=== PATIENT | female | born 1975 | race Caucasian/White ===

== ENCOUNTER 2018-07-04 21:04 | Emergency (ER) | payer BC ==
[~2018-07-04] VITALS: Ht 160 cm; Wt 86.2 kg
[2018-07-04 21:10] VITALS: BP 154/93
[2018-07-04] MEDS ORDERED: CIPRODEX OTIC7.5 M1 LEFT EAR (21:28)
[2018-07-04] MEDS ORDERED: HYDROCODON-ACE1 EA15 ORAL (21:28)
[2018-07-04] MEDS ORDERED: BACTRIM DS TAB1 EAC1 ORAL (21:28)
--- NOTE | 2018-07-04 21:29 | Emergency Room Report ---
History of Present Illness General Chief Complaint: Earache Source: Patient Present Illness HPI This 43-year-old female with no significant past medical history. She presents with chief complaint of left ear pain. Onset for last few days. There is some drainage. No fever chills but no nausea no vomiting. Pain is 9 out of 10. Worse with movement of the ear. No trauma. No other complaint. Allergies: Coded Allergies: No Known Allergies (Unverified , 07/04/18) Patient History Past Medical History: see triage record, old chart reviewed Past Surgical History: none Pertinent Family History: none Social History: Denies: smoking Last Menstrual Period: Jun, 2018 Now: No Immunizations: other Reviewed Nursing Documentation: PMH: Agreed; PSxH: Agreed Nursing Documentation-PMH Past Medical History: No Stated History Review of Systems Eye: Denies: eye pain, blurred vision ENT: Reports: ear pain, ear discharge; Denies: nose congestion, throat swelling Respiratory: Denies: cough, shortness of breath Cardiovascular: Denies: chest pain, palpitations Gastrointestinal: Denies: abdominal pain, diarrhea, nausea, vomiting Musculoskeletal: Denies: back pain, joint pain Skin: Denies: rash Neurological: Denies: headache, numbness Endocrine: Denies: increased thirst, increased urine Hematologic/Lymphatic: Denies: easy bruising All Other Systems: negative except mentioned in HPI Physical Exam Vital Signs Date Time Temp Pulse Resp B/P (MAP) Pulse Ox O2 Delivery O2 Flow Rate FiO2 07/04/18 21:10 99.2 89 15 154/93 96 Room Air 99.1 vitals with high blood pressure Sp02 EP Interpretation: reviewed, normal General Appearance: well appearing, no apparent distress, alert Head: normocephalic, atraumatic Eyes: bilateral eye PERRL, bilateral eye EOMI ENT: hearing grossly normal, normal pharynx, other - Left ear: There is edema to the external canal to the point that I can't see the TM. Just inside the ear canal, there is a small pinpoint abscess. I was able to express this with a Q-tip. Neck: full range of motion, supple, no meningismus Respiratory: chest non-tender, lungs clear, normal breath sounds Cardiovascular #1: regular rate, rhythm, no murmur Gastrointestinal: normal bowel sounds, non tender, no mass, no organomegaly, no bruit, non-distended Musculoskeletal: back normal, gait/station normal, normal range of motion Psychiatric: mood/affect normal Skin: warm/dry Medical Decision Making Diagnostic Impression: Primary Impression: Abscess of left ear canal Additional Impression: Otitis externa Qualified Codes: H60.502 - Unspecified acute noninfective otitis externa, left ear ER Course Patient with a small abscess of the external canal. This cause edema and otitis externa. No obvious otitis media that can be seen. No fluctuant or deep abscess second twice a day. We'll discharge home with antibiotics. I did place an ear wick. Last Vital Signs Date Time Temp Pulse Resp B/P (MAP) Pulse Ox O2 Delivery O2 Flow Rate FiO2 07/04/18 21:10 210.6 89 15 154/93 96 Room Air 210.6 Status: improved Disposition: HOME, SELF-CARE Condition: Stable Scripts Ciprofloxacin Hcl/Dexameth (CIPRODEX OTIC SUSPENSION) 7.5 Ml Drops.susp 4 DROP LEFT EAR TWICE A DAY, #10 ML Prov: Mukund Lara MD 07/04/18 Hydrocodone/Acetaminophen 5-325* (HYDROCODONE/ACETAMINOPHEN 5-325*) 1 Each Tablet 1 TAB ORAL Q6H PRN for For Pain, #10 TAB 0 Refills Prov: Mukund Lara MD 07/04/18 Trimethoprim/Sulfamethoxazole 160/800* (BACTRIM DS TABLET*) 1 Each Tablet 1 TAB ORAL Q12H, #14 TAB 0 Refills Prov: Mukund Lara MD 07/04/18 Patient Instructions: Otitis Externa, [id number] Additional Instructions: Follow-up with your DrJack in 2 to 3 days for recheck. Return if symptom worsen. Mukund Lara MD Jul 04, 2018 21:29
[2018-07-04] MEDS ORDERED: Bactrim-DS 1 tab ORAL ONE (21:30)
[2018-07-04 21:36] VITALS: BP 154/93
== END 2018-07-04 21:57 | disposition home or self-care (01) ==
LOC: EMR 21:55
DX: H60.02 Abscess of left external ear (principal); H60.92 Unspecified otitis externa, left ear
CPT/HCPCS: 99283

== ENCOUNTER 2019-04-28 01:27 | Emergency (ER) | payer SELFPAY ==
[~2019-04-28] VITALS: Ht 162.6 cm; Wt 86.2 kg
[~2019-04-28 01:27] MED LIST: BACTRIM DS TAB1 EAC1 ORAL; CIPRODEX OTIC7.5 M1 LEFT EAR; HYDROCODON-ACE1 EA15 ORAL
[2019-04-28 01:50] VITALS: BP 160/96
--- NOTE | 2019-04-28 02:01 | NUR ---
ED Nurse Note: Patient walked in to Er from home c/o ear ache. AA) x4, VSS at this time.
[2019-04-28 02:04] VITALS: BP 160/96
[2019-04-28] MEDS ORDERED: CIPRODEX OTIC7.5 M1 RIGHT EAR (02:04)
--- NOTE | 2019-04-28 02:04 | Emergency Room Report ---
History of Present Illness General Chief Complaint: Earache Source: Patient Present Illness HPI Is a 43-year-old female with no significant past medical history. She presents with chief complaint of right ear pain. Onset was about 2 days ago. This occurred after she went to a water park with her family. She went on one water ride and went underneath the water. There was water that got into her ear. Since then is swollen and painful. Decreased hearing. No nausea no vomiting. No drainage. No fever. Allergies: Coded Allergies: No Known Allergies (Unverified , 07/04/18) Patient History Past Medical History: see triage record, old chart reviewed Past Surgical History: none Pertinent Family History: none Social History: Denies: smoking Last Menstrual Period: 04-27-19 Now: No Immunizations: other Reviewed Nursing Documentation: PMH: Agreed; PSxH: Agreed Nursing Documentation-PMH Past Medical History: No Stated History Review of Systems Eye: Denies: eye pain, blurred vision ENT: Reports: ear pain; Denies: nose congestion, throat swelling Respiratory: Denies: cough, shortness of breath Cardiovascular: Denies: chest pain, palpitations Gastrointestinal: Denies: abdominal pain, diarrhea, nausea, vomiting Musculoskeletal: Denies: back pain, joint pain Skin: Denies: rash Neurological: Denies: headache, numbness Endocrine: Denies: increased thirst, increased urine Hematologic/Lymphatic: Denies: easy bruising All Other Systems: negative except mentioned in HPI Physical Exam Vital Signs Date Time Temp Pulse Resp B/P (MAP) Pulse Ox O2 Delivery O2 Flow Rate FiO2 04/28/19 01:37 98.4 92 16 160/96 (117) 98 Vitals with high blood pressure Sp02 EP Interpretation: reviewed, normal General Appearance: well appearing, no apparent distress, alert Head: normocephalic, atraumatic Eyes: bilateral eye PERRL, bilateral eye EOMI ENT: hearing grossly normal, normal pharynx, other - Right ear: There is edema to the external canal. It almost closed shut. I cannot see the TM. Neck: full range of motion, supple, no meningismus Respiratory: chest non-tender, lungs clear, normal breath sounds Cardiovascular #1: regular rate, rhythm, no murmur Gastrointestinal: normal bowel sounds, non tender, no mass, no organomegaly, no bruit, non-distended Musculoskeletal: back normal, gait/station normal, normal range of motion Psychiatric: mood/affect normal Medical Decision Making Diagnostic Impression: Primary Impression: Right otitis externa Qualified Codes: H60.501 - Unspecified acute noninfective otitis externa, right ear ER Course Patient presents with a right otitis externa. I placed a small ear wick and gave her some lidocaine for pain. No evidence of any perforation. Unlikely to be otitis media. No mastoiditis. Will discharge home. Last Vital Signs Date Time Temp Pulse Resp B/P (MAP) Pulse Ox O2 Delivery O2 Flow Rate FiO2 04/28/19 01:37 98.4 92 16 160/96 (117) 98 Status: improved Disposition: HOME, SELF-CARE Condition: Stable Scripts Ciprofloxacin Hcl/Dexameth (CIPRODEX OTIC SUSPENSION) 7.5 Ml Drops.susp 4 DROP RIGHT EAR TWICE A DAY, #10 ML Prov: Mukund Lara MD 04/28/19 Patient Instructions: Otitis Externa, [id number] Additional Instructions: Follow-up with your doctor in 7 days for recheck. Return if symptoms worsen. Mukund Lara MD Apr 28, 2019 02:04
--- NOTE | 2019-04-28 02:09 | NUR ---
ED Nurse Note: Pt cleared by health care Provider for discharge. DC instructions/prescription was given and explained to pt and verbalized understanding of teachings. All medical deviecs such as ID band removed. Pt is AAO x4, ambulatory and left with all personal belongings.
== END 2019-04-28 02:06 | disposition home or self-care (01) ==
LOC: EMR 01:58
DX: H60.501 Unspecified acute noninfective otitis externa, right ear (principal)
CPT/HCPCS: 99282